=== PATIENT | male | born 1985 | race African-American/Black ===

== ENCOUNTER 2021-03-23 16:24 | Emergency (ER) | payer OTHER ==
[2021-03-23] MEDS ORDERED: Cyclobenzaprine 10 MG TAB ONE (17:01)
[2021-03-23] MEDS ORDERED: Ketorolac Tromethamine 30 MG/ML VIAL ONE (17:01)
== END 2021-03-23 17:16 | disposition home or self-care (01) ==
LOC: CSHERS 16:24
DX: S16.1XXA Strain of muscle, fascia and tendon at neck level, initial encounter (principal); M54.6 Pain in thoracic spine; V43.52XA Car driver injured in collision with other type car in traffic accident, initial encounter
CPT/HCPCS: 96372; 99283; J1885